=== PATIENT | female | born 1970 | race Caucasian/White ===

== ENCOUNTER 2021-07-18 14:36 | Outpatient (REF) | payer OTHER, SELFPAY ==
--- NOTE | ~2021-07-18 | XR_ITS ---
EXAMINATION: XR CHEST CLINICAL INFORMATION: Chronic cough COMPARISON: None TECHNIQUE: 2 views of the chest were obtained. FINDINGS: The cardiac and mediastinal contours are normal. The lungs are well inflated. The lungs are clear. There is no pleural effusion or thorax. Bony structures are unremarkable. XR/XR chest 2V IMPRESSION: Well-inflated lungs. No evidence for acute disease in the chest.
== END 2021-07-18 14:37 | disposition home or self-care (01) ==
LOC: HO.XRAY 14:36
PROVIDERS: PCP Nurse Practitioner Family; Visit Provider Otolaryngology
DX: R05.9 Cough, unspecified (principal)
CPT/HCPCS: 71046

== ENCOUNTER 2021-07-25 15:07 | Outpatient (REF) | payer OTHER, SELFPAY ==
--- NOTE | ~2021-07-25 | XR_ITS ---
EXAMINATION: XR SINUSES CLINICAL INFORMATION: Sinusitis COMPARISON: None TECHNIQUE: 4 views of the sinuses were obtained. FINDINGS: Paranasal sinuses appear clear without air-fluid levels. No fractures are identified. No radiodense foreign bodies. XR/XR sinus <3V IMPRESSION: The paranasal sinuses appear clear.
== END 2021-07-25 15:08 | disposition home or self-care (01) ==
LOC: HO.XRAY 15:07
PROVIDERS: Visit Provider Otolaryngology
DX: J32.9 Chronic sinusitis, unspecified (principal)
CPT/HCPCS: 70210

== ENCOUNTER 2021-12-29 03:35 | Emergency (ER) | payer OTHER, SELFPAY ==
[2021-12-29 03:53] VITALS: BP 164/87; PULSE 75; RESP 18; TEMP 37; O2SAT 100; BMI 25.7
[2021-12-29 04:12] VITALS: BP 157/85; PULSE 71; RESP 20; TEMP 37.1; O2SAT 100
[2021-12-29] MEDS: Fluorescein Sodium STRIP 1 STRIP EYE-LEFT (04:40)
[2021-12-29] MEDS: Tetracaine HCl/PF 0.5% Oph Sol 4 ML DROPS 1 DROP EYE-LEFT (04:40)
--- NOTE | 2021-12-29 04:40 | PC.NURSE ---
Meds and Oakley Lamp left at bed side for .
--- NOTE | 2021-12-29 05:49 | ED_ITS ---
HPI - General Adult General Chief complaint: General Medical Stated complaint: scratched cornea? L eye pain Time Seen by Provider: 12/29/21 03:47 Source: patient Mode of arrival: ambulatory History of Present Illness HPI narrative: 51-year-old female who comes in after playing softball last night stating that she woke up and had pain in the left eye not on movement and denies any photosensitivity and states that her left eye has been watering since 0130. Patient states it feels like there is something in her eye but denies any burning/ tingling sensation to the side of face no symptoms within the year, nose, side of the face. Related Data Previous Rx's Medication Instructions Recorded erythromycin 5 mg/gram (0.5 %) eye 0.5 inch OPHTHALMIC (EYE) TID 5 12/29/21 ointment Days #3.5 g Allergies Allergy/AdvReac Type Severity Reaction Status Date / Time Sulfa (Sulfonamide AdvReac Hives Unverified 12/29/21 04:01 Antibiotics) Review of Systems Review of Systems: Pertinent positives and negatives as stated in HPI 10 point review of systems is otherwise negative. PMFSH Past Medical History Source: nursing notes reviewed Social History Social History Advance Directives: No Advance Directives Information Provided: Yes Physical Exam ED Vital Signs: Vital Signs - 24 hr 12/29/21 03:53 12/29/21 04:12 Temperature 98.6 F 98.8 F Pulse Rate 75 71 Respiratory Rate 18 20 Blood Pressure 164/87 H 157/85 H Pulse Oximetry 100 100 BMI result Body Mass Index 25.7 VITAL SIGNS: Reviewed. GENERAL: Well developed, well nourished, in no acute distress. HEAD: Normocephalic/atraumatic EYES: PERRLA, EOMI , no conjunctival injection noted, no fixed pupil noted, fluorscein utilize but no obvious abrasion or foreign body identified. Patient's eye was vigorously irrigated with saline, however gradually the discomfort that patient was experiencing returned. EARS: Ext canals without abnormality, TMs non-bulging and non-erythematous NOSE: Nares patent bilateral OROPHARYNX: no oral lesions noted, posterior pharynx clear LUNGS: Normal breath sounds. CARDIOVASCULAR: Regular rate and rhythm without noted murmurs ABDOMEN: Soft, non-tender, non-distended with bowel sounds. NEUROLOGIC: Alert and oriented x 4. Course Course Course Narrative: 51-year-old female with history and clinical presentation suggestive of possible foreign body or corneal abrasion, but unable to identify. There is no evidence to suggest acute angle glaucoma, there is no history or presentation to support retinal pathology, but unable to obtain IOP due to missing equipment. Patient was informed of all results and findings as well as the plan to go ahead and get her started on antibiotic ointment and she understands that she will need to follow-up with her knitting machine fixer today. She is otherwise discharged home in stable condition and was provided with an additional eye drop of topical anesthetic. Discharge Plan Discharge Clinical Impression: Left eye pain Patient Disposition: Home, Self-Care Instructions: Eye Pain (ED) Additional Instructions: 1. Please utilize the antibiotic ointment as directed. 2. Follow-up with your knitting machine fixer today for re-evaluation and further investigation. Return to the ER for worsening symptoms. Prescriptions: New erythromycin 5 mg/gram (0.5 %) ointment 0.5 inch ophthalmic (eye) TID 5 Days Qty: 3.5 0RF Referrals: Sharlene Horta, TOMMY, NUMERICAL CONTROL PROGRAMMER, FIELD EVIDENCE TECHNICIAN-C [Primary Care Provider] -
[2021-12-29] MEDS: Erythromycin Base 0.5% Oph Oin 1 GM TUBE 1 CM EYE-LEFT (05:52)
== END 2021-12-29 06:33 | disposition home or self-care (01) ==
PROVIDERS: Emergency Provider Student in an Organized Health Care Education/Training Program; PCP Registered Nurse
DX: H57.12 Ocular pain, left eye (principal)
CPT/HCPCS: 99281; 99283

== ENCOUNTER 2024-05-05 10:01 | Emergency (ER) | payer OTHER, SELFPAY ==
--- NOTE | ~2024-05-05 | CT_ITS ---
EXAMINATION: CT ABDOMEN AND PELVIS WITHOUT CONTRAST CLINICAL INFORMATION: Left-sided flank pain COMPARISON: None available. TECHNIQUE: Multidetector volumetric imaging was performed from the superior aspect of the liver through the pubic symphysis. Sagittal and coronal reformatted images were obtained on the technologist's workstation. This CT examination was performed using dose optimization techniques as appropriate, variously including the following: *Automated exposure control *Adjustment of mA and/or kV according to patient size (this includes techniques or standardized protocols for targeted exams where dose is matched to indication/reason for exam; i.e. extremities or head) *Use of iterative reconstruction technique DLP: 393 mGy-cm FINDINGS: LUNG BASES: The visualized lung bases are unremarkable. LIVER, GALLBLADDER, AND BILIARY TREE: The liver is normal in size, shape, and attenuation. No focal hepatic lesion or biliary ductal dilatation is present. The gallbladder is unremarkable with no evidence of radiopaque gallstones, gallbladder wall thickening, or obvious pericholecystic inflammatory changes. PANCREAS: Unremarkable. SPLEEN: Unremarkable. ADRENAL GLANDS: Unremarkable. KIDNEYS AND URETERS: The kidneys are normal in size, shape, and attenuation. There is mild left-sided hydronephrosis with a prominent ureter down to the level of a tiny punctate 1.2 mm calculus at the left UVJ. 4 tiny punctate calcifications are seen in the lower pole of left kidney with 2 tiny punctate calcification in the left, one in the upper pole and the other in the lower pole. No right sided hydronephrosis, hydroureter, or ureteral calculi seen. No perinephric stranding. BLADDER: Empty but unremarkable aside from the stone at the left UVJ GASTROINTESTINAL TRACT: The small and large bowel are unremarkable. There is no evidence of appendicitis. ABDOMINAL WALL: No significant hernia is appreciated. LYMPH NODES: Normal. VASCULAR: Unremarkable. PELVIC VISCERA: The uterus and adnexa are unremarkable. OSSEOUS STRUCTURES: Unremarkable. CT/CT abdomen pelvis wo IV con IMPRESSION: 1. Obstructing 1.2 mm calculus at the left UVJ with associated hydronephrosis. 2. Other incidental findings as described above including bilateral punctate nonobstructing intrarenal calculi Fleischner guidelines were followed. Electronically signed by: Jamie Avila MD 05/05/2024 12:02 PM EDT
[2024-05-05 10:04] VITALS: BP 144/82; PULSE 89; RESP 20; TEMP 37; O2SAT 100; BMI 26.6
[2024-05-05 10:45] LABS: MANUAL DIFF FLAG NO
[2024-05-05 10:46] LABS: Basophils Percent Auto 0.4 % (0-2); Eosinophils Percent Auto 0.2 % (0-4); Hematocrit 40.6 % (37.0-47.0); Hemoglobin 14.4 g/dl (12.0-16.0); Imm Gran Abs Auto 0.02 X10*3/uL (0.00-0.03); Imm Gran Pct Auto 0.2 % (0.0-0.4); Lymphocytes Absolute Auto 2.8 X10*3/uL (1.2-4.9); Lymphocytes Percent Auto 33.5 % (20-40); Mean Corpuscular HGB Conc 35.5 g/dl (31.0-35.0); Mean Corpuscular Hemoglobin 32.3 pg (27.0-33.0); Mean Platelet Volume 8.4 fL (9.4-12.3); Monocytes Absolute Auto 0.4 X10*3/uL (0.1-1.2); Monocytes Percent Auto 4.6 % (2-11); Neutrophils Percent Auto 61.1 % (45-73); Platelet Count 182 X10*3/uL (160-400); Red Blood Count 4.46 X10*6/uL (4.20-5.50); White Blood Count 8.2 X10*3/uL (4.8-10.8)
[2024-05-05 10:47] LABS: Appearance Urine Cloudy; Color Urine Yellow; Glucose Urine UA Negative (Negative); Leukocyte Esterase Urine Small (1+) (Negative); Nitrite Urine Negative (Negative); Specific Gravity - Urine 1.025 (1.005-1.025); UMIC TRIGGER UACC YES; Urine Blood Moderate (2+) (Negative); Urine Ketones Trace mg/dL (Negative); Urine Protein Negative (Neg-Trace)
[2024-05-05 10:52] LABS: Bacteria Urine 1+ (None Seen); Hyaline Casts Urine 0-2 /LPF (0-2); UACC Culture Trigger YES
--- NOTE | 2024-05-05 10:59 | ED_ITS ---
HPI - Abdominal Pain General Chief Complaint: Abdominal Pain Stated Complaint: Kidney Stone Time Seen by Provider: 05/05/24 10:54 Source: patient Mode of arrival: ambulatory Limitations: no limitations History of Present Illness HPI narrative: 53 years old patient presented to emergency department with a chief complaint of left flank pain radiated to her genitalia. Pain started this morning denies any vomiting any diarrhea she has no prior history of kidney stones. She had postmenopausal bleeding for which she has been workup by the OBGYN with a uterine biopsy MD elicited complaint: flank pain Pertinent past history: none Onset (ago): hour(s) (8) Pain Consistency: constant Location: other (Left flank) Severity: moderate Quality: aching Radiation: L flank Migration to: no migration Exacerbating factors: nothing Relieving factors: nothing Related Data Previous Rx's ?Medication ?Instructions ?Recorded erythromycin 5 mg/gram (0.5 %) eye 0.5 inch ophthalmic (eye) TID 5 12/29/21 ointment days #3.5 grams ketorolac 10 mg tablet 10 mg PO Q8H PRN pain 3 days #12 05/05/24 tabs tamsulosin 0.4 mg capsule (Flomax) 0.4 mg PO BEDTIME #7 caps 05/05/24 Allergies Allergy/AdvReac Type Severity Reaction Status Date / Time Sulfa (Sulfonamide AdvReac Hives Unverified 05/05/24 10:08 Antibiotics) Review of Systems Reports system reviewed and no additional complaints, except as documented Cardiovascular: Reports no additional cardiovascular complaints Reports system reviewed and no additional complaints, except as documented [facility] [place] Social History Social History Advance Directives: No Advance Directives Information Provided: No Do you have a plan to hurt others: No Plan Physical Exam ED Vital Signs: Vital Signs - 24 hr 05/05/24 10:04 05/05/24 12:00 Temperature 98.6 F Pulse Rate 89 65 Respiratory Rate 20 16 Blood Pressure 144/82 H 140/59 H Pulse Oximetry 100 98 Oxygen Delivery Method Room Air Room Air BMI result Body Mass Index 26.6 Const General: cooperative and comfortable Nutritional Appearance: average body habitus Orientation/consciousness: patient oriented x3 HENMT Head: Yes normal to inspection Ears: hearing grossly normal bilaterally Face and sinus: Yes normal facial exam Mouth: Normal oral and palatal mucosa present Neck Neck: Yes normal visual inspection and Yes full ROM Thyroid: Thyroid normal Carotids: normal carotid upstroke Chest Chest palpation & inspection: normal inspection of the chest Resp Effort & Inspection: normal respiratory effort Auscultation: clear to auscultation bilaterally Cardio Jugular venous distension: no JVD Rate: regular rate Rhythm: regular rhythm GI Other: Tenderness in the left flank Inspection: Yes normal to inspection Palpation (GI): Soft to palpation Skin General skin exam: no rashes or lesions noted Neuro General: patient oriented x3 Course Reevaluation(s) Reevaluation #1: On re-examination the patient is doing much better she is pain-free clinical picture consistent with left renal colic confirmed by CT at this point we could discharge the patient home Time: 12:52 Medical Decision Making Medical Decision Making [facility] Narrative: Patient presented to the ED with a left flank pain will check CT labs UA Differential Diagnosis Differential Diagnoses: The differential diagnosis associated with the presentation includes Kidney stone/pyelonephritis/renal colic Admission/Observation Consideration of admission/observation: Escalation of care including admission/observation considered Lab Data MDM Lab Attestation statement: I reviewed the patient's lab results. 05/05/24 10:41 05/05/24 10:41 Labs: Lab Results 05/05/24 05/05/24 Range/Units 10:38 10:41 WBC 8.2 (4.8-10.8) X10*3/uL RBC 4.46 (4.20-5.50) X10*6/uL Hgb 14.4 (12.0-16.0) g/dl Hct 40.6 (37.0-47.0) % MCV 91.0 (80.0-98.0) fL MCH 32.3 (27.0-33.0) pg MCHC 35.5 H (31.0-35.0) g/dl RDW 12.0 (11.0-16.0) % Plt Count 182 (160-400) X10*3/uL MPV 8.4 L (9.4-12.3) fL Immature Gran % (Auto) 0.2 (0.0-0.4) % Neut % (Auto) 61.1 (45-73) % Lymph % (Auto) 33.5 (20-40) % [place] % (Auto) 4.6 (2-11) % Eos % (Auto) 0.2 (0-4) % Baso % (Auto) 0.4 (0-2) % Lymph # (Auto) 2.8 (1.2-4.9) X10*3/uL [place] # (Auto) 0.4 (0.1-1.2) X10*3/uL Eos # (Auto) 0.0 (0.0-0.4) X10*3/uL Baso # (Auto) 0.0 (0.0-0.2) X10*3/uL Abs Immat Gran (auto) 0.02 (0.00-0.03) X10*3/uL Absolute Neuts (auto) 5.0 (2.0-8.3) x10*3/uL Absolute Nucleated RBC 0.000 (0.0-0.012) X10*3/uL Nucleated RBC % (auto) 0.0 (0.0-0.2) /100WBC Sodium 140 (135-145) mmol/L Potassium 3.9 (3.3-5.1) mmol/L Chloride 108 (96-108) mmol/L Carbon Dioxide 26 (22-29) mmol/L Anion Gap 10 L (12-20) BUN 15 (9-16) mg/dL Creatinine 0.88 (0.5-1.4) mg/dL Estim Creat Clear Calc 77.3 Estimated GFR > 60 Random Glucose 106 (60-115) mg/dL Calcium 9.5 (8.4-10.2) mg/dL Total Bilirubin 0.7 (0.0-1.0) mg/dL AST 11 (5-31) U/L ALT 15 (0-31) U/L Alkaline Phosphatase 52 (39-117) U/L Total Protein 6.4 L (6.5-8.0) g/dL Albumin 4.1 (3.5-5.0) g/dL Urine Color Yellow Urine Appearance Cloudy Urine pH 6.0 (5.0-9.0) Ur Specific K[place] 1.025 (1.005-1.025) Urine Protein Negative (Neg-Trace) mg/dL Urine Glucose (UA) Negative (Negative) mg/dL Urine Ketones Trace (Negative) mg/dL Urine Blood Moderate (2+) H (Negative) Urine Nitrite Negative (Negative) Ur Leukocyte Esterase Small (1+) H (Negative) Urine RBC 11-20 H (0-2) /HPF Urine WBC 11-20 H (0-5) /HPF Ur Squamous Epith Cells 11-20 (0-2) /HPF Urine Bacteria 1+ (None Seen) Hyaline Casts 0-2 (0-2) /LPF Independent Interpretation I performed an independent interpretation of an: CT Scan Interpretation: left uretheral stone Radiology Impression Discussion of test interpretation with radiology: I have reviewed the radiologist's reading. Radiologist Impression: bowel are unremarkable. There is no evidence of appendicitis. ABDOMINAL WALL: No significant hernia is appreciated. LYMPH NODES: Normal. VASCULAR: Unremarkable. PELVIC VISCERA: The uterus and adnexa are unremarkable. OSSEOUS STRUCTURES: Unremarkable. CT/CT abdomen pelvis wo IV con IMPRESSION: 1. Obstructing 1.2 mm calculus at the left UVJ with associated hydronephrosis. 2. Other incidental findings as described above including bilateral punctate nonobstructing intrarenal calculi Fleischner guidelines were followed. Electronically signed by: Jamie Avila MD 05/05/2024 12:02 PM EDT RP Dictated By: Jamie Avila MD Signed By: <Electronically signed by Jamie Avila MD in OV> 05/05/24 1202 Independent Historian Clinical information obtained from an independent historian. History obtained from or confirmed by: Other (significative other) Prescription Management I considered prescription management with: Pain Medication Medications Administered Discontinued Medications Generic Name Dose Route Start Last Admin Trade Name Freq PRN Reason Stop Dose Admin Ketorolac Tromethamine 15 mg 05/05/24 10:58 05/05/24 11:28 Ketorolac Tromethamine 15 Mg/Ml Vial IVPUSH 05/05/24 10:59 15 mg ONCE ONE Administration Discharge Plan Discharge Clinical Impression: Renal colic on left side Patient Disposition: Home, Self-Care Instructions: Renal Colic (ED) Additional Instructions: Follow-up with urologist return to the emergency room if you worse vomiting or fever Prescriptions: New tamsulosin [Flomax] 0.4 mg capsule 0.4 mg PO BEDTIME Qty: 7 0RF ketorolac 10 mg tablet 10 mg PO Q8H PRN (Reason: pain) 3 Days Qty: 12 0RF No Action erythromycin 5 mg/gram (0.5 %) ointment 0.5 inch ophthalmic (eye) TID 5 Days Qty: 3.5 0RF Referrals: John Olivera MD [Physician] - 3 days Print Language: Bahraini
[2024-05-05 11:01] LABS: Alanine Aminotransferase 15 U/L (0-31); Albumin Level 4.1 g/dL (3.5-5.0); Alkaline Phosphatase 52 U/L (39-117); Anion Gap 10 (12-20); Aspartate Amino Transferase 11 U/L (5-31); Bilirubin Total 0.7 mg/dL (0.0-1.0); Blood Urea Nitrogen 15 mg/dL (9-16); Calcium 9.5 mg/dL (8.4-10.2); Carbon Dioxide 26 mmol/L (22-29); Chloride 108 mmol/L (96-108); Creatinine Clr Calc Pharmacy 77.3; Estimated Glomerular Filt Rate > 60; Glucose Random 106 mg/dL (60-115); Potassium 3.9 mmol/L (3.3-5.1); Sodium 140 mmol/L (135-145); Total Protein 6.4 g/dL (6.5-8.0)
[2024-05-05] MEDS: Ketorolac Tromethamine 15 MG/ML VIAL IVPUSH (11:28)
[2024-05-05 12:00] VITALS: BP 140/59; PULSE 65; RESP 16; O2SAT 98
[2024-05-05 13:10] VITALS: BP 140/59; PULSE 65; RESP 18; TEMP 36.8; O2SAT 98
== END 2024-05-05 13:11 | disposition home or self-care (01) ==
PROVIDERS: Emergency Provider Emergency Medicine; PCP Registered Nurse
DX: N23 Unspecified renal colic (principal); Z79.899 Other long term (current) drug therapy
CPT/HCPCS: 36415; 74176; 80053; 81001; 85025; 87086; 96374; 99284; J1885

== ENCOUNTER 2024-06-24 13:56 | Outpatient (AMB) | payer OTHER, SELFPAY ==
--- NOTE | 2024-06-24 14:00 | MHC.OFFVIS ---
Intake Visit Reasons: [facility] [place] ER(05/05)- Kidney Stones/hydronephrosis Intake Note: New Patient is present for [facility] [place] ER Follow up Kidney stones [facility] [place] ER Visit: 05/05/24 Urology Med: Tamsulosin (Prescribed at ER) Antibiotic Allergy: Sulfa Antibiotics Blood Thinner: None Patient reports that she is feeling a lot better since ER visit She reports that she does have some urinary concerns, she reports that she gets up 2-4 times during the night and does experience frequency during the day. She reports she was on medication when she was younger in her 20's while working in a [employer] to help with frequency. 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 She is a patient of . She is seen for the following urologic conditions - nephrolithiasis - bladder instability Discussed imaging findings Need 64 oz of water Has issues with bladder urgency and frequency Printed information provided Trial low-dose daily Cialis Nephrolithiasis Reason presentation to emergency room with distal right ureteric pain Imaging - CT - There is mild left-sided hydronephrosis with a prominent ureter down to the level of a tiny punctate 1.2 mm calculus at the left UVJ. 4 tiny punctate calcifications are seen in the lower pole of left kidney with 2 tiny punctate calcification in the left, one in the upper pole and the other in the lower pole Bladder instability Waking 3 times at night Urinating 8 times a day Only drinks 32 oz Previously investigated with urodynamics and diagnosed as interstitial cystitis in her 20s but never underwent treatment [facility] Medical History (Updated 06/24/24 @ 14:34 by John Olivera MD) Nocturia Sinusitis, chronic History of kidney stones Fibroid uterus Surgical History History of arthroscopy of left shoulder H/O elbow surgery Family History Maternal Aunt Breast cancer Father CAD (coronary atherosclerotic disease) Review of Systems Const Denies chills and Denies fever(s) Card Reports no additional complaints and Denies syncope Resp Denies cough GI Denies abdominal pain and Denies heartburn Reports as per HPI and Denies change in libido Neuro Denies syncope Psych Denies change in libido Endo Denies change in libido Physical Exam Const General: cooperative, healthy appearing, comfortable and no acute distress Orientation/consciousness: patient oriented x3 HEENT Face and sinus: Yes normal facial exam Mouth: moist mucous membranes Neck Neck: Yes normal visual inspection, Yes full ROM and Yes trachea midline Chest Chest palpation & inspection: normal inspection of the chest Resp Effort & Inspection: normal respiratory effort, able to speak in complete sentences and no respiratory distress GI Inspection: Yes normal to inspection Back/Spine/Pelvis Cervical Spine: normal cervical lordosis Thoracic/Lumbar Spine: thoracic and lumbar spine normal to inspection Skin General skin exam: no rashes or lesions noted Neuro General: patient oriented x3, gait normal, tone normal and moves all extremities Extrem General: Yes normal to inspection and Yes capillary refill normal Office Procedures Post Void Residual Post Residual Void Post Void Residual (PVR): 0 [id number] Void Residual by ultrasound Assessment & Plan Assessment & Plan (1) Bladder instability: Code(s): N32.89 - Other specified disorders of bladder Category: Medical (2) Nephrolithiasis: Code(s): N20.0 - Calculus of kidney Category: Medical Plan Three-month follow-up renal ultrasound Trial Cialis Orders: Orders AMB Post Void Residual by ultrasound Today R35.0 - Frequency of micturition US renal BI 3 Months N20.0 - Calculus of kidney Medications: New tadalafil MARK N [facility] [id number] 2.5 mg PO DAILY 90 days 90 tabs 0RF Bladder instability N32.89 - Other specified disorders of bladder Patient Instructions: Imaging studies, laboratory and physical exam results were discussed and reviewed in detail. No major barriers to patient understanding were identified. An opportunity to ask questions regarding the treatment plan was provided. All questions were answered. The patient expressed understanding and agreement with the above treatment plan. The patient is aware they should contact our office by phone for worsening of their current condition or the appearance of new urologic symptoms. Compliance is encouraged with any medications and followup testing that is ordered. It is a privilege to participate in the urologic care of your patient. If you have any questions or concerns regarding treatment for the above conditions, or other urologic issues, please do not hesitate to contact me. The office telephone contact is [phone]. This note is constructed using voice recognition software. While every effort has been made to ensure accuracy medical receptionist assistant errors may have been included. Yours sincerely, Dr John Olivera MD, [facility] - Urology Providers of Expert, Compassionate Care for the Genitourinary System Coding Level of Care Code New Pt Level 4 (18448) Diagnoses Bladder instability N32.89 Nephrolithiasis N20.0 CPT Codes Post Residual Void - PVR CPT Code: 78893-[id number] Void Residual by ultrasound ([id number])
== END 2024-06-24 14:45 | disposition home or self-care (01) ==
LOC: HO.HUSH 13:56
PROVIDERS: PCP Registered Nurse; Visit Provider Urology
DX: N32.89 Other specified disorders of bladder (principal); N20.0 Calculus of kidney
CPT/HCPCS: 99204

== ENCOUNTER → 2024-06-24 13:56 | Outpatient (BNVA) | payer OTHER, SELFPAY | PROVIDERS: PCP Registered Nurse; Visit Provider Urology | DX: N32.89 Other specified disorders of bladder (principal); N20.0 Calculus of kidney; R35.0 Frequency of micturition | CPT/HCPCS: 51798 ==

== ENCOUNTER 2024-12-05 13:55 | Outpatient (AMB) | payer OTHER, SELFPAY ==
--- NOTE | 2024-12-05 13:55 | MHC.OFFVIS ---
Intake Visit Reasons: medication review Intake Note: Pt presents as a telehealth visit today for a medication review. Allergies Penicillins Allergy (Mild, Verified 12/05/24 13:56) Unknown Sulfa (Sulfonamide Antibiotics) Adverse Reaction (Verified 12/05/24 13:56) Hives HPI Comments Details: Sonal is a pleasant female. She is a patient of . She is seen for the following urologic conditions - nephrolithiasis - bladder instability Telemedicine Evaluation 15 min Consultation Open[employer] Marcel Video Discussed follow-up from trial of low-dose Cialis Was beneficial for initial timeframe Has had return of urinary urgency and frequency Discussed trial of anticholinergic Would prefer to bump up from 2.5 to 5 mg daily tadalafil Nephrolithiasis Reason presentation to emergency room with distal right ureteric pain Imaging - CT - There is mild left-sided hydronephrosis with a prominent ureter down to the level of a tiny punctate 1.2 mm calculus at the left UVJ. 4 tiny punctate calcifications are seen in the lower pole of left kidney with 2 tiny punctate calcification in the left, one in the upper pole and the other in the lower pole Bladder instability Waking 3 times at night Urinating 8 times a day Only drinks 32 oz Previously investigated with urodynamics and diagnosed as interstitial cystitis in her 20s but never underwent treatment PFSH Medical History Nocturia Sinusitis, chronic History of kidney stones Fibroid uterus Surgical History History of arthroscopy of left shoulder H/O elbow surgery Family History Maternal Aunt Breast cancer Father CAD (coronary atherosclerotic disease) Review of Systems Const All systems reviewed & are unremarkable except as noted in HPI and below Reports no additional complaints Resp Reports no additional complaints GI Reports no additional complaints Reports as per HPI Musc Reports no additional complaints Physical Exam Telemedicine evaluation Appropriate responses Regular breathing rate and rhythm HEENT Head: Yes normal to inspection Ears: hearing grossly normal bilaterally Eyes General: appearance normal, both eyes and all related structures Neck Neck: Yes normal visual inspection Chest Chest palpation & inspection: normal inspection of the chest Resp Effort & Inspection: normal respiratory effort and able to speak in complete sentences Telehealth Telehealth Telehealth Platform: Doximity Location of provider rendering services: practice address Location of patient: address on file Patient Identification confirmed using: Name, : Yes Telehealth method: video Patient verbally consented to treatment: Yes Patient verbally consented to billing insurance company: Yes Patient informed of any privacy concerns related to visit: Yes Assessment & Plan Assessment & Plan (1) Nephrolithiasis: Code(s): N20.0 - Calculus of kidney Category: Medical (2) Bladder instability: Code(s): N32.89 - Other specified disorders of bladder Category: Medical Plan Increased dose tadalafil Medications: New tadalafil [id number] [facility] [id number] Member [id number] 5 mg PO DAILY 30 tabs 1RF 30 days N32.89 - Other specified disorders of bladder Discontinued tadalafil [facility] Group [facility] [id number] Discontinued Reason: Patient Completed Course 2.5 mg PO DAILY 90 days 90 tabs 3RF Bladder instability N32.89 - Other specified disorders of bladder Patient Instructions: This note is constructed using voice recognition software. While every effort has been made to ensure accuracy frame pulley mortising machine operator errors may have been included. Imaging studies, laboratory and physical exam results were discussed and reviewed in detail. No major barriers to patient understanding were identified. An opportunity to ask questions regarding the treatment plan was provided. All questions were answered. The patient expressed understanding and agreement with the above treatment plan. The patient is aware they should contact our office by phone for worsening of their current condition or the appearance of new urologic symptoms. Compliance is encouraged with any medications and followup testing that is ordered. It is a privilege to participate in the urologic care of your patient. If you have any questions or concerns regarding treatment for the above conditions, or other urologic issues, please do not hesitate to contact me. The office telephone contact is [phone]. Sincerely, Dr John Olivera MD, [facility] - Urology Compassionate Specialist Care for the Genitourinary System Coding Level of Care Code Tele Est Pt Level 3 (92911) Complex EM visit Add On G2211 Diagnoses Nephrolithiasis N20.0 Bladder instability N32.89
--- OUTSIDE RECORDS SUMMARY | 2024-12-05 14:18 | XMS_ITS ---
Author Organization [facility] Address [address] [place] [id number] Care Team Providers Care Field Superintendent Name Role Phone KAMERON NAVARRETE Unavailable [phone] REASON FOR VISIT Question Social History Sex Assigned At : Social History Observation Description Sex Assigned At Female Encounters Encounter Location Date Provider Diagnosis [facility] [address] [place] [address] [place], [place] [phone] 05/14/2024 KAMERONSA NAVARRETE Plan Of Treatment No Information Progress Notes * Sonal BRAVODOB: [birth year] (53 yo F)Acc No.[id number]:05/14/2024 Patient:?Sonal BRAVO :1970???Age:53 Y???Sex:Female Address:[address] [place] [address], [address] * true * Date:? Generated for Printi judy/[email or web address]/eTransmitting on:?12/05/2024 02:18 PM EDT
--- OUTSIDE RECORDS SUMMARY | 2024-12-05 14:18 | XMS_ITS | Clinical Summary ---
Author Organization [facility] Address [address] [place] [id number] Care Team Providers Care Periodicals Clerk Name Role Phone Alexei Velazquez MD Primary Care Provider [phone] Allergies Active Allergy Reactions Criticality Noted Date Comments Penicillins Hives Low 07/23/2014 rash Sulfa Antibiotics 08/08/2005 Medications Medication Sig Dispensed Refills Start Date End Date Status acetaminophen (TYLENOL EXTRA STRENGTH) 500 MG tablet Take 500 mg by mouth. 0 Active Diclofenac Sodium 1 % GEL topical Place 2 g onto the skin. 0 10/16/2018 Active gabapentin (NEURONTIN) 300 MG capsule TAKE 3 CAPSULES BY MOUTH ONCE DAILY AT BEDTIME 0 09/14/2017 Active ibuprofen (ADVIL,MOTRIN) 800 MG tablet TAKE 1 TABLET BY MOUTH EVERY 8 HOURS NEEDED FOR PAIN 0 05/13/2019 Active MAGNESIUM PO Take by mouth. 0 Active Active Problems Problem Noted Date Diagnosed Date Subacromial bursitis of left shoulder joint 12/2019 Impingement syndrome of left shoulder region 12/2019 Social History Tobacco Use Types Packs/Day Years Used Date Smoking Tobacco: Never Assessed Sex and Gender Information Value Date Recorded Sex Assigned at Not on file Gender Identity Not on file Sexual Orientation Not on file Last Filed Vital Signs Vital Sign Reading Time Taken Comments Blood Pressure - - Pulse - - Temperature - - Respiratory Rate - - Oxygen Saturation - - Inhaled Oxygen Concentration - - Weight 65.8 kg (145 lb) 10/23/2019 9:50 AM EST Height 162.6 cm (5' 4 ) 10/23/2019 9:50 AM EST Body Mass Index 24.89 10/23/2019 9:50 AM EST Plan of Treatment Health Maintenance Due Date Last Done Comments Hepatitis B Vaccines (1 of 3 - 3-dose series) 1971 Hepatitis C Screening 1970 COVID-19 Vaccine (#1) 01/01/1972 Depression Screening 1983 Preventative Health Evaluation 1989 Cervical Cancer Screening (Pap Smear) 1992 Colon Cancer Screening (Colonoscopy) 2016 Breast Cancer Screening (Mammogram) 2021 Shingrix-Zoster Vaccine (1 o f 2) 2021 Influenza Vaccine (#1) 2024 DTap / Tdap / Td (3 - Td or Tdap) 04/22/2027 04/22/2017, 12/11/2006 Pneumococcal Vaccine Aged Out No long er eligible based on patient's age to complete this topic RSV Ped < 20 months Aged Out No longe r eligible based on patient's age to complete this topic Insurance Payer Benefit Plan / Group Subscriber ID Effective Dates Phone Address [facility] [id number] 2019-Presen t 1 [facility] [address] [place] [phone] O Care Teams Periodicals Clerk Relationship Specialty Start Date End Date Alexei Velazquez MD PCP - General Paper Mill Manager 10/16/19
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
--- OUTSIDE RECORDS SUMMARY | 2024-12-05 14:18 | XMS_ITS ---
Author Organization [facility] Address [address] [place] [phone] Care Team Providers Care Concrete Mixer Operator Helper Name Role Phone FARZANEHIsaiah JENNA Unavailable [phone] Allergies Allergen (clinical drug ingredient) Drug/Non Drug Allergy documented on EMR Reaction Allergy Type Onset Date Status Penicillin Unknown Drug Allergy Active Substance with sulfonamide structure and antibacterial mechanism of action (substance) Sulfa Antibiotics Unknown Drug Allergy Active REASON FOR VISIT Counseling Medications Medication SIG (Take, Route, Frequency, Duration) Notes Start Date End Date Status LORazepam at night for sleep Not-Taking Meloxicam 15 MG 1 tablet Orally Once a day for 30 day(s) Active Estradiol patch Active Progesterone Micronized at night 100mg Active Iron Not-Taking Social History Sex Assigned At : Social History Observation Description Sex Assigned At Female Vital Signs Blood pressure systolic 122 mm Hg 11/04/19 25 Blood pressure diastolic 82 mm Hg 025 Height 5'4 in 11/03/2024 Weight 138.6 lbs 11/03/2024 BMI 23.79 kg/m2 11/03/2024 Encounters Encounter Location Date Provider Diagnosis [address] [place], [place] [phone] 11/03/2024 JENNA GABAI Counseling, unspecified Z71.9 Assessments Encounter Date Diagnosis (ICD Code) Assessment Notes Treatment Notes Treatment Clinical Notes Section Notes 11/03/2024 Counseling, unspecified (ICD-10 - Z71.9) Reviewed notes from outside provider. Clt has appt tomorrow with BUTTERMILK DRIER OPERATOR again to review plan of care and discuss concerns regarding recommendation to repeat D&C. Encouraged clt to advocate for plan to manage vasomotor symptoms with non-hormonal medication if they still advise discontinuation of HRT patch. Encouraged clt not to cut patch in half or quarters d/t potential for inaccurate dosing. Consider hormonal IUD at time of D&Explosive Ordnance Disposal Specialist she could consider staying on estrogen patch for relief of hot flashes and have endometrial protection. Hysterectomy is also still an option, but clt doesn't seem interested in that at this time. Support provided. Encouraged clt to discuss concerns with BUTTERMILK DRIER OPERATOR and be up front with what she feels comfortable doing. If BUTTERMILK DRIER OPERATOR is advising repeat D&C then that [...] others Communication of test results Established Patient: 21576 30 Minutes Plan Of Treatment Treatment Notes Assessment Notes Counseling, unspecified Reviewed notes from outside provider. Clt has appt tomorrow with BUTTERMILK DRIER OPERATOR again to review plan of care and discuss concerns regarding recommendation to repeat D&C. Encouraged clt to advocate for plan to manage vasomotor symptoms with non-hormonal medication if they still advise discontinuation of HRT patch. Encouraged clt not to cut patch in half or quarters d/t potential for inaccurate dosing. Consider hormonal IUD at time of D&Explosive Ordnance Disposal Specialist she could consider staying on estrogen patch for relief of hot flashes and have endometrial protection. Hysterectomy is also still an option, but clt doesn't seem interested in that at this time. Support provided. Encouraged clt to discuss concerns with BUTTERMILK DRIER OPERATOR and be up front with what she feels comfortable doing. If BUTTERMILK DRIER OPERATOR is advising repeat D&C then that is likely most important to follow through with. Advised clt to go in with list of questions for tomorrows appt. Progress Notes * Sonal ESTESDOB: 1 (54 yo F)Acc No.[id number]:11/03/2024 Progress Notes Patient:?Sonal ESTES Provider:?Jenna Elaine NP :1970???Age:54 Y???Sex:Female D ate:11/03/2024 Address:[address] [place], [place] [id number] Subjective: * Chief Complaints: * ???Counseling * HPI: ???Visit Narrative:?Clt presenting for second opinion to discuss follow-up plan after BUTTERMILK DRIER OPERATOR visit. Had hysteroscopic polypectomy, myomectomy with D&C 06/2024. Pathology showed endometrial polyp, fragments of endometrium with crowded glands with altered cytologic features (close follow up recommended), fragments of myometrium with adenomyosis, fragments of benign smooth muscle. BUTTERMILK DRIER OPERATOR advised that she have repeat hysteroscopy with D&C 01/2025 to ensure negative pathology. Clt reports some vaginal bleeding 08/2024 and was advised at that time to discontinue her HRT. She has tried to cut down on dose by cutting her patch in half and then a quarter, but unable to tolerate return of vasomotor symptoms. Experienced post op dysuria and dyspareunia and hesitant to do it again. ?Current form of control:?none.?Presenting Symptoms:?no Sx.?LMP:?08/2024.?Other Notes for the Clinician:?Clt has concerns regarding recent surgery for fibroid and polyp removal done in June. Pathology showed no signs of cancer or abnormality but provider states he'd like to have the surgery again in 6 months to ensure normal findings but clt is hesitant and looking for second opinion. Has decreased estradiol patch to a quarter for help w/ hormonal imbalance. States she has previously tried to discontinue method and experienced hot flashes and night sweats. Denies any new partners or sexual activity.? * ROS:?see HPI. * Medical History:? * C T Tech History:?Abnormal menstruations:?06/2024- myomectomy, polypectomy with D&C pathology: fragments of endometrium with crowded glands with altered cytologic features (close follow up recommended), fragments of myometrium with adenomyosis, fragments of benign smooth muscle.Pelvic ultrasound report from outside provider, date 06/2023. Heterogenous uterus with probable fibroid 3.7 x 3.3 x 4.1 cm. Endometrium 0.3 cm. Nabothian cysts.EMB pathology: Weakly proliferative endometrium with stromal and glandular breakdown.? control:?none.?Last mammogram date:?07/2020.?Last menstrual period:?08/2024.?Last pap smear date:?PAP 11/2021- NIL/HPV negative (repeat cotest in 3 years)08/2020- NIL/HPV negative (repeat cotest in 3 years).?Menarche: ?Age of menarche?14 ???Periods:?menopause.?Sexual activity:?not currently sexually active.?Sexually Transmitted Diseases (STDs):?none.?Unprotected sex in the last 5 days?:?no.?Unprotected sex in the past 10 days?:?no.? * OB History:?Total pregnancies:?0.? * Surgical History:?left shoul chidi surgery elbow surgery polypectomy, D&C, myomectomy 06/2024 * Hospitalization/Major Diagno stic Procedure:?No Hospitalization History. * Family History:? No known family history. * Social History:?Food Access:?Food Access?The Client's current access to food is?Secure Food Access ???Housing:?Housing?The client's current living situation is:?stable housing ???Reproductive Life Plan:?Reproductive Life Plan?Do you want to have children??No, I don't want to have children ?How sure are you that you will be able to use your control method without any problems??Very sure ?People's plans change. Is it possible you or your partner could ever decide to become ??No ???Sexual History:?Sexual History?Sexual History Reviewed:?Partners, Practices, Protection/Past STIs, Prevention of ?Currently sexually active??No ?When was the last time you were sexually active??very long ago ?Your sexual activities include:?no sexual activity ?Reviewed types of EC??No ?Do you use condoms??No ?Number of partners in past 3 months:?0 ?Number of partners in past year:?0 ?What is the client's primary method to prevent at the end of their visit??Abstinence ???HIV Risk Assessment:?Additional Questions?Is an HIV Risk Assessment being conducted??No ???PrEP for HIV:?PrEP for HIV?Is the client interested in beginning/continuing PrEP for HIV??No ???Relationships:?Relationships?Has the client experienced any of the following:?Client has never experienced harmful relationships ???Human Trafficking:?Human Trafficking?Experienced:?No ???Tobacco Use:?Tobacco Use?Do you/have you used tobacco??Yes, in the past ?Tobacco Smoking Status?Former smoker ???Drugs/Alcohol:?Drug/Alcohol Use?Do you or have you used drugs??No ?Do you or have you used alcohol??Yes, in the past clean for 28 years ???Counseling Provided:?Counseling Provided?Please indicate the length of time, in minutes, that counseling was provided.?6 ?Counseling Was Provided By:?omaymora * Medications:?TakingMeloxicam 15 MG Tablet 1 tablet Orally Once a day Estradiol , Notes to Pharmacist: patchProgesterone Micronized , Notes to Pharmacist: at night 100mgTaking Meloxicam 15 MG Tablet 1 tablet Orally Once a day Taking Estradiol , Notes to Pharmacist: patchTaking Progesterone Micronized , Notes to Pharmacist: at night 100mgNot-Taking/PRNIron LORazepam , Notes to Pharmacist: at night for sleepNot-Taking/PRN Iron Not-Taking/PRN LORazepam , Notes to Pharmacist: at night for sleepDiscontinuedEstradiol 10 MCG Tablet _insert 1 TABLET VAGINALLY TWO TIMES A WEEK Medication List reviewed and reconciled with the patientDiscontinued Estradiol 10 MCG Tablet _insert 1 TABLET VAGINALLY TWO TIMES A WEEK Medication List reviewed and reconciled with the patient * Allergies:?PenicillinSulfa A ntibioticsno[Allergies Verified] Objective: * Vitals:?BP:122/82mm Hg, Ht: 5'4 , Wt:138.6lbs, BMI:23.79Index, Ht-cm: 162.56, Wt-k.87. * Examination: ???General Examination: ?GENERAL APPEARANCE:?pleasant, in no acute distress.?NEUROLOGIC:? alert and oriented.? Assessment: * Assessment: 1.?Counseling, unspecified - Z71.9 (Primary)??? Spent ___ minutes doing the following: Chart Prep Obtaining/reviewing history Performing medically necessary exam Counseling/Coordination of Care Documenting the visit Educating the patient Ordering medication/test/procedures Interpretation of test performed by others Communication of test results Established Patient: 32100 30 Minutes Plan: * Treatment: * Procedure Codes:? * Billing Information: * Visit Code:? 26549 Existing - Medium Complexity (IN USE). * Procedure Codes:? * Sign off status: Completed true * Provider:?Jenna Elaine NP Date:? 025 Generated for Gabriel kim/Gabriela/Elvia on:?12/05/2024 02:17 PM EDT History and Physical Notes * HPI (History of Present Illness) Category Sub-Category Detail Notes Category Not es Visit Narrative Current form of control: none Presenting Symptoms: no Sx Other Notes for the Clinician: Clt has c oncerns regarding recent surgery for fibroid and polyp removal done in June. Pathology showed no signs of cancer or abnormality but provider states he'd like to have the surgery again in 6 months to ensure normal findings but clt is hesitant and looking for second opinion. Has decreased estradiol patch to a quarter for help w/ hormonal imbalance. States she has previously tried to discontinue method and experienced hot flashes and night sweats. Denies any new partners or sexual activity LMP: 08/2024 Examination Category Sub-Category Detail Notes Category Not es General Examination GENERAL APPEARANCE: pleasant, in n o acute distress NEUROLOGIC: alert and oriented
--- OUTSIDE RECORDS SUMMARY | 2024-12-05 14:18 | XMS_ITS ---
Author Organization [facility] Address [address] [place] [phone] Care Team Providers Care Lcac Operator Name Role Phone KAMERON NAVARRETE Unavailable [phone] REASON FOR VISIT Follow up Social History Sex Assigned At : Social History Observation Description Sex Assigned At Female Encounters Encounter Location Date Provider Diagnosis [facility] [address] [place] [address] [place], [place] [phone] 11/04/2024 KAMERONMARK NAVARRETE Plan Of Treatment No Information Progress Notes * Sonal BRAVODOB: 1 (54 yo F)Acc No.[id number]:11/04/2024 Patient:?Sonal BRAVO :1970???Age:54 Y???Sex:Female Address:[address] [place] [address], [phone] Subjective: * Chief Complaints: * ???Follow up * Medical History:? * Liaison Inspection Laboratory Assistant History:?Abnormal menstruations:?06/2024- myomectomy, polypectomy with D&C pathology: [...] control:?none.?Last mammogram date:?07/2020.?Last menstrual period:?08/2024.?Last pap smear date:?10/2024- AGC/HPV negative (due for colpo)11/2021- NIL/HPV negative (repeat cotest in 3 years)08/2020- NIL/HPV negative (repeat cotest in 3 years).?Menarche: ?Age of menarche?14 ???Periods:?menopause.?Sexual activity:?not currently sexually active.?Sexually Transmitted Diseases (STDs):?none.?Unprotected sex in the last 5 days?:?no.?Unprotected sex in the past 10 days?:?no.? * OB History:?Total pregnancies:?0.? * Surgical History:? * Hospitalization/Major Diagno stic Procedure:? * Medications:? Objective: * Vitals:? * Physical Examination:? Assessment: Plan: * Treatment: * Procedure Codes:? * true * Date:? Generated for Gabriel kim/Gabriela/Leannsmitting on:?12/05/2024 02:18 PM EDT
== END 2024-12-05 15:31 | disposition home or self-care (01) ==
LOC: HO.HUSH 13:55
PROVIDERS: PCP Registered Nurse; Visit Provider Urology
DX: N20.0 Calculus of kidney (principal); N32.89 Other specified disorders of bladder
CPT/HCPCS: 99213

== ENCOUNTER 2025-02-24 15:58 | Outpatient (AMB) | payer OTHER, SELFPAY ==
--- OUTSIDE RECORDS SUMMARY | 2025-02-24 16:11 | XMS_ITS | Clinical Summary ---
Author Organization [facility] Address [address] [place] [id number] Care Team Providers Care Bar And Filler Assembler Name Role Phone Alexei Velazquez MD Primary Care Provider [phone] Allergies Active Allergy Reactions Criticality Noted Date [...] o f 2) 2021 Influenza Vaccine (#1) 2025 DTap / Tdap / Td (3 - Td or Tdap) 04/22/2027 04/22/2017, 12/11/2006 Pneumococcal Vaccine Aged Out No long er eligible based on patient's age to complete this topic RSV Ped < 20 months Aged Out No longe r eligible based on patient's age to complete this topic Insurance Payer Benefit Plan / Group Subscriber ID Effective Dates Phone Address [facility] [id number] 2019-Presen t [facility] [address] [place] [id number] O Care Teams Bar And Filler Assembler Relationship Specialty Start Date End Date Alexei Velazquez MD PCP - General Automation Control Technician 10/16/19
--- OUTSIDE RECORDS SUMMARY | 2025-02-24 16:11 | XMS_ITS | Patient Health Record ---
Author Organization [facility] Address [address] [place] [phone] Care Team Providers Care Laboratory Technologist Name Role Phone FARZANEHIsaiah KAMERON Unavailable [phone] Allergies Allergen (clinical drug ingredient) Drug/Non Drug [...] Status Risk Notes Problem Atrophy of vulva (798106926) Atrophy of vulva (N90.5) Active confirmed Problem Postmenopausal bleeding (72053961) Postmenopausal bleeding (N95.0) Active confirmed Vital Signs Blood pressure diastolic 82 mm Hg 11/03/2024 Height 5'4 in 11/03/2024 Blood pressure systolic 122 mm Hg 11/03/2024 Weight 138.6 lbs 11/03/2024 BMI 23.79 kg/m2 11/03/2024 Encounters Encounter Location Date Provider Diagnosis [address] [place], [place] [phone] 03/18/2024 KAMERON GABAI Postmenopausal bleed ing N95.0 and Counseling, unspecified Z71.9 [facility] [address] [place], [place] [phone] 11/03/2024 KAMERON FARZANEHI Counseling, unspecif ied Z71.9 [facility] [address] [place], [place] [phone] 03/10/2024 KAMERON GABAI [facility] [address] [place], [place] [phone] 04/19/2024 KAMERON GABAI [facility] [address] [place], [place] [phone] 05/14/2024 KAMERON GABAI [facility] [address] [place], [place] [phone] 11/04/2024 KAEMRON GABAI Assessments Encounter Date Diagnosis (ICD Code) Assessment Notes Treatment Notes Treatment Clinical Notes Section Notes 03/18/2024 Postmenopausal bleeding (ICD-10 - N95.0) Referral for WEATHER TEACHER and pelvic ultrasound written, appt to be scheduled. Long discussion on concerns related to postmenopausal bleeding and importance of follow up for possible EMB and treatment options. Clt understands plan and will wait to hear about appt with WEATHER TEACHER. Reviewed signs and symptoms that would warrant ED follow up Spent ___ minutes doing the following: Chart Prep Obtaining/review ing history Performing medically necessary exam Counseling/Coord ination of Care Documenting the visit Educating the patient Ordering medication/test/ procedures Communication with other providers Interpretation of test performed by others Communication of test results Established Patient: 82192 10 Minutes 03/18/2024 Counseling, unspecified (ICD-10 - Z71.9) Spent ___ minutes doing the following: Chart Prep Obtaining/review ing history Performing medically necessary exam Counseling/Coord ination of Care Documenting the visit Educating the patient Ordering medication/test/ procedures Communication with other providers Interpretation of test performed by others Communication of test results Established Patient: 00341 10 Minutes 11/03/2024 Counseling, unspecified (ICD-10 - Z71.9) Reviewed notes from outside provider. Clt has appt tomorrow with WEATHER TEACHER again to review plan of care and discuss concerns regarding recommendation to repeat D&C. Encouraged clt to advocate for plan to manage vasomotor symptoms with non-hormonal medication if they still advise discontinuation of HRT patch. Encouraged clt not to cut patch in half or quarters d/t potential for inaccurate dosing. Consider hormonal IUD at time of D&Director Systems she could consider staying on estrogen patch for relief of hot flashes and have endometrial protection. Hysterectomy is also still an option, but clt doesn't seem interested in that at this time. Support provided. Encouraged clt to discuss concerns with WEATHER TEACHER and be up front with what she feels comfortable doing. If WEATHER TEACHER is advising repeat D&C then that is [...] others Communication of test results Established Patient: 20733 30 Minutes 03/18/2024 Other Discussed STI risks, screening, and safe sex Spent ___ minutes doing the following: Chart Prep Obtaining/review ing history Performing medically necessary exam Counseling/Coord ination of Care Documenting the visit Educating the patient Ordering medication/test/ procedures Communication with other providers Interpretation of test performed by others Communication of test results Established Patient: 92845 10 Minutes Plan Of Treatment No Information Insurance Providers Payer Name Payer Address Payer Phone Subscriber Number Group Number Insured Name Patient Relationship to Insured Coverage Start Date Coverage End Date [facility] [address] [place], [place] [phone] [id number] Lawrence Sonal Self - patient is the [...]
--- NOTE | 2025-02-24 16:16 | A.OFFVIS_ITS ---
Intake Visit Reasons: 6 month follow up Intake Note: Patient is present for 6m follow up Urology Med: Estradiol, Mirbegron Antibiotic Allergy: Sulfa Antibiotics Blood Thinner: None I&C Technician Required: No Accompanied by: Self / Same As Patient Allergies Penicillins Allergy (Mild, Verified 02/24/25 21:56) Unknown Sulfa (Sulfonamide Antibiotics) Adverse Reaction (Verified 02/24/25 21:56) Hives Medication List - Last Reconciled 02/24/25 by MORALES Shaw- estradiol 1 patch transdermal 2XW meloxicam 15 mg PO DAILY mirabegron ER 25 mg PO DAILY montelukast 10 mg PO DAILY naltrexone 1 mg PO DAILY progesterone micronized 100 mg PO DAILY HPI Comments Details: Sonal is a 54-year-old female patient of Dr. Horta. She has a past medical history of chronic sinusitis, nephrolithiasis, and fibroid uterus. She presents to the office today for follow-up of her nephrolithiasis and lower urinary tract symptoms. Of note, patient was seen approximately 3 months ago at which time she was started on Myrbetriq for ongoing lower urinary tract symptoms she has been experiencing. She discusses a longstanding history of urinary urgency, urinary frequency, and nocturia. She reports despite limiting fluids 2-3 hours prior to bed she continues with episodes of nocturia up to 3 times per night. She reports previously she had trialed low-dose Cialis and found this helpful for 6 months however felt symptoms returned. She was only recently able to start Myrbetriq as there were issues with insurance coverage. She reports having been on Myrbetriq for approximately 3 weeks and is unsure as if symptoms have improved. She discusses her mom's longstanding history of overactive bladder and reports her mother is on Myrbetriq and Gemtesa. She also has a longstanding history of nephrolithiasis however discusses this was many years ago and does not feel she needs further workup or intervention at this time. We did discussed at length further treatment options to include bladder diary, retroperitoneal ultrasound, in office cystoscopy, and or in office urodynamics. Risks and benefits of these interventions were discussed. She discusses having trialed trospium, tadalafil, Flomax, oxybutynin, and VESIcare without any improvement in her urinary frequency and nocturia. She discusses her most bothersome urinary issue is nocturia. She denies any signs or symptoms of sleep apnea. All questions were answered. In office urinalysis results reviewed with the patient today. We did discussed bladder triggers and irritants. All questions were answered. She otherwise offers no other issues or concerns at this time. PREVIOUS OFFICE NOTE: Nephrolithiasis Reason presentation to emergency room with distal right ureteric pain Imaging - CT - There is mild left-sided hydronephrosis with a prominent ureter down to the level of a tiny punctate 1.2 mm calculus at the left UVJ. 4 tiny punctate calcifications are seen in the lower pole of left kidney with 2 tiny punctate calcification in the left, one in the upper pole and the other in the lower pole Bladder instability Waking 3 times at night Urinating 8-15 times a day Only drinks 32 oz Previously investigated with urodynamics and diagnosed as interstitial cystitis in her 20s but never underwent treatment [facility] Medical History (Updated 02/24/25 @ 22:08 by Ileana Alfaro [facility]) Nocturia Sinusitis, chronic History of kidney stones Fibroid uterus Surgical History History of arthroscopy of left shoulder H/O elbow surgery Family History Maternal Aunt Breast cancer Father CAD (coronary atherosclerotic disease) Review of Systems Const All systems reviewed & are unremarkable except as noted in HPI and below Physical Exam Const General: cooperative, healthy appearing, comfortable, no acute distress, well developed, alert and awake Orientation/consciousness: patient oriented x3 Limitations: no limitations HEENT Head: Yes normal to inspection, Yes normocephalic and Yes atraumatic Ears: hearing grossly normal bilaterally Eyes General: appearance normal, both eyes and all related structures Neck Neck: Yes normal visual inspection and Yes trachea midline Chest Chest palpation & inspection: normal inspection of the chest Resp Effort & Inspection: normal respiratory effort and able to speak in complete sentences Cardio Rate: regular rate GI Inspection: Yes normal to inspection General: Yes no CVA tenderness Back/Spine/Pelvis Back: no CVA tenderness Skin General skin exam: no rashes or lesions noted Neuro General: patient oriented x3 Extrem General: Yes normal to inspection Psych Appearance: grossly normal and well kempt Mental Status: mental status grossly normal Speech and movement: Normal speech and movement present and Clear speech present Affect: normal affect Attitude: cooperative Thought process: Normal thought process present Thought content: Normal thought content present Insight: Fair insight present (Psych) Judgement: Fair judgement present (Psych) Results AMB Urinalysis, Automated UA Leukoctes 0 Sendy/uL Last Edit by Tamika To on 02/24/25 16:20 UA Nitrite Negative Last Edit by Crystal To on 02/24/25 16:20 UA Urobilinogen 17 mg/dL Last Edit by Crystal To on 02/24/25 16:20 UA Protein 1 mg/dL Last Edit by Crystal To on 02/24/25 16:20 UA pH 6.5 Last Edit by Crystal To on 02/24/25 16:20 UA Blood 10 Jayjay/uL Last Edit by Tamika To on 02/24/25 16:20 UA Specific [place] 1.015 Last Edit by Tamika To on 02/24/25 16:20 UA Ketone Negative Last Edit by Tamika To on 02/24/25 16:20 UA Bilirubin 0 mg/dL Last Edit by Tamika To on 02/24/25 16:20 UA Glucose 0 mg/dL Last Edit by Tamika To on 02/24/25 16:20 Results Reviewed Results Reviewed: Laboratory Last Values Urine pH (Auto) 6.5 02/24/25 16:05 Specific [place] (Auto) 1.015 02/24/25 16:05 Urine Protein (Auto) 1 mg/dL 02/24/25 16:05 Glucose (UA)(Auto) 0 mg/dL 02/24/25 16:05 Urine Ketones (Auto) Negative 02/24/25 16:05 Urine Blood (Auto) 10 Jayjay/uL 02/24/25 16:05 Urine Nitrite (Auto) Negative 02/24/25 16:05 Urine Bilirubin (Auto) 0 mg/dL 02/24/25 16:05 Urine Urobilinogen (Auto) 17 mg/dL 02/24/25 16:05 Leukocyte Esterase (Auto) 0 Sendy/uL 02/24/25 16:05 Assessment & Plan Assessment & Plan (1) Nephrolithiasis: Code(s): N20.0 - Calculus of kidney Category: Medical (2) Bladder instability: Code(s): N32.89 - Other specified disorders of bladder Category: Medical (3) Microscopic hematuria: Code(s): R31.29 - Other microscopic hematuria Category: Medical (4) Nocturia: Code(s): R35.1 - Nocturia Category: Medical Plan In office urinalysis results reviewed with the patient today; will send for urine cytology. We did discussed at length potential causes of lower urinary tract symptoms patient is experiencing as well as further treatment options and risks and benefits of these treatment options. Continue Myrbetriq; she will call office in 3-4 weeks to discuss potential increase in Myrbetriq as she is unsure if Myrbetriq has not helpful as she only started medication approximately 3 weeks ago. We discussed increase in Myrbetriq and or dual therapy with VESIcare or trial of Gemtesa. We also discussed bladder triggers and irritants. Information provided regarding bladder diary and bladder matters material for further Education. We discussed obtaining retroperitoneal ultrasound for further assessment evaluation; however she declines at this time. Will continue with Myrbetriq 25 mg daily at this time. Follow-up in 3 months with [facility]; or sooner with any issues, concerns, and or questions. Orders: Orders AMB Urinalysis Automated Today Z13.9 - Encounter for screening, unspecified Urine Cytology Today R35.1 - Nocturia Patient Instructions: The patient had an opportunity to ask questions regarding the treatment plan. All questions were answered. Physical exam, labs, and imaging were discussed and reviewed in detail. As well as risks, benefits, and discussion of treatment choices. No major barriers to understanding were identified. The patient expressed understanding and agreement with the above treatment plan. The patient was made aware they should contact our office by phone for worsening of their current condition, the appearance of new symptoms, or with any que stions or concerns. Compliance is encouraged with any medications and follow up testing that is ordered. It is a privilege to be allowed the opportunity to participate in? your urological care.? Again, if you have any questions or concerns If you have any questions or concerns please do not hesitate to contact me. The office is [phone]. This note is constructed using voice recognition software. While every effort has been made to ensure accuracy datastage developer errors may have been included. Yours sincerely, SARAH Shaw Coding Level of Care Code Est Pt Level 3 (14439) Complex EM visit Add On G2211 Diagnoses Nephrolithiasis N20.0 Bladder instability N32.89 Microscopic hematuria R31.29 Nocturia R35.1
== END 2025-02-24 16:55 | disposition home or self-care (01) ==
LOC: HO.HUSH 15:58
PROVIDERS: PCP Registered Nurse; Visit Provider Nurse Practitioner Family
DX: N20.0 Calculus of kidney (principal); N32.89 Other specified disorders of bladder; R31.29 Other microscopic hematuria; R35.1 Nocturia; Z13.9 Encounter for screening, unspecified
CPT/HCPCS: 99213; G2211

== ENCOUNTER 2025-02-24 15:58 | Outpatient (REF) | payer OTHER, SELFPAY | END 2025-02-24 15:59 | disposition home or self-care (01) | LOC: HO.LAB 15:58 | PROVIDERS: PCP Registered Nurse; Visit Provider Nurse Practitioner Family | DX: Z13.9 Encounter for screening, unspecified (principal); N20.0 Calculus of kidney; N32.89 Other specified disorders of bladder; R31.29 Other microscopic hematuria; R35.1 Nocturia | CPT/HCPCS: 81003; 88112 ==

== ENCOUNTER 2025-05-26 07:42 | Outpatient (REF) | payer OTHER, SELFPAY | END 2025-05-26 07:43 | disposition home or self-care (01) | LOC: HO.LAB 07:42 | PROVIDERS: PCP Registered Nurse; Visit Provider Nurse Practitioner Family | DX: R31.29 Other microscopic hematuria (principal); N20.0 Calculus of kidney; N32.89 Other specified disorders of bladder; R35.1 Nocturia | CPT/HCPCS: 51798; 81003; 88112 ==

== ENCOUNTER 2025-05-26 07:42 | Outpatient (AMB) | payer OTHER, SELFPAY ==
--- OUTSIDE RECORDS SUMMARY | 2025-05-26 07:48 | XMS_ITS | Clinical Summary ---
Author Organization [facility] Address [address] [place] [address] Care Team Providers Care Investment Manager Name Role Phone Alexei Velazquez MD Primary Care Provider [phone] Allergies Active Allergy Reactions Criticality Noted Date [...] Group Subscriber ID Effective Dates Phone Address [facility] [id number] 2019-Presen t [address] [facility] [address] [place] [phone] O Care Teams Investment Manager Relationship Specialty Start Date End Date Alexei Velazquez MD PCP - General Regional Director Of Admissions 10/16/19
--- OUTSIDE RECORDS SUMMARY | 2025-05-26 07:48 | XMS_ITS ---
Author Name [facility] Organization Unknown Care Team Organization Name Specialty Phone Email Start Date End Da sanford [facility] 06/27/2022 4
--- OUTSIDE RECORDS SUMMARY | 2025-05-26 07:48 | XMS_ITS | Patient Health Record ---
Author Organization [facility] Address [address] [id number] Care Team Providers Care Community Development Specialist Name Role Phone KAMERON NAVARRETE Unavailable [phone] Allergies Allergen (clinical drug ingredient) Drug/Non Drug Allergy documented on EMR Reaction Allergy Type Onset Date Status Penicillin Unknown Drug Allergy Active Substance with sulfonamide structure and antibacterial mechanism of action (substance) Sulfa Antibiotics Unknown Drug Allergy Active Reason For Referral No Information Medications Medication SIG (Take, Route, Frequency, Duration) Notes Start Date End Date Status Iron Not-Taking /PRN LORazepam at night for sleep Not-Taking/PRN Meloxicam 15 MG Tablet 1 tablet Orally Once a day; Duration: 30 day(s) Active Estradiol patch Active Progesterone Micronized at night 100mg Active Social History Sex Assigned At : Social History Observation Description Sex Assigned At Female Social History HIV Risk Assessment Social Info Question Answer Notes Additional Questions Is an HIV Risk Asse ssment being conducted? No Reproductive Life Plan: Social Info Question Answer Notes Reproductive Life Plan: Do you want to have chil dren? No, I don't want to have children How sure are you that you will be able to use your control method without any problems? Very sure People's plans change. Is it possible you or your partner could ever decide to become ? No Human Trafficking: Social Info Question Answer Notes Human Trafficking Experienced: No PrEP for HIV: Social Info Question Answer Notes PrEP for HIV Is the client brandon carson in beginning/continuing PrEP for HIV? No Sexual History: Social Info Question Answer Notes Sexual History: Sexual History Reviewed: Partner s, Practices, Protection/Past STIs, Prevention of Currently sexually active? No When was the last time you were sexually active? very long ago Your sexual activities include: no sexual activity Reviewed types of EC? No Do you use condoms? No Number of partners in past 3 months: 0 Number of partners in past year: 0 What is the client's primary method to prevent at the end of their visit? Abstinence Counseling Provided: Social Info Question Answer Notes Counseling Provided Please indicate the length of time, in minutes, that counseling was provided. 6 Counseling Was Provided By: curtis Drugs/Alcohol: Social Info Question Answer Notes Drug/Alcohol Use Do you or have you used drugs? 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 Yes, in the past Tobacco Smoking Status Former smoker Problems Problem Type SNOMED Code ICD Code Onset Dates Problem Status W/U Status Risk Notes Problem Atrophy of vulva (423560747) Atrophy of vulva (N90.5) Active confirmed Problem Postmenopausal bleeding (78265322) Postmenopausal bleeding (N95.0) Active confirmed Vital Signs Blood pressure diastolic 82 mm Hg 11/03/2024 Height 5'4 in 11/03/2024 Blood pressure systolic 122 mm Hg 11/03/2024 Weight 138.6 lbs 11/03/2024 BMI 23.79 kg/m2 11/03/2024 Encounters Encounter Location Date Provider Diagnosis [facility] [id number] 11/03/2024 KAMERON GABAI Counseling, unspecified Z71.[address] [facility] [id number] 11/04/2024 KAMERON GABAI Assessments Encounter Date Diagnosis (ICD Code) Assessment Notes Treatment Notes Treatment Clinical Notes Section Notes 11/03/2024 Counseling, unspecified (ICD-10 - Z71.9) Reviewed notes from outside provider. Clt has appt tomorrow with AUDIO VISUAL ENGINEER again to review plan of care and discuss concerns regarding recommendation to repeat D&C. Encouraged clt to advocate for plan to manage vasomotor symptoms with non-hormonal medication if they still advise discontinuation of HRT patch. Encouraged clt not to cut patch in half or quarters d/t potential for inaccurate dosing. Consider hormonal IUD at time of D&Ladle Filler she could consider staying on estrogen patch for relief of hot flashes and have endometrial protection. Hysterectomy is also still an option, but clt doesn't seem interested in that at this time. Support provided. Encouraged clt to discuss concerns with AUDIO VISUAL ENGINEER and be up front with what she feels comfortable doing. If AUDIO VISUAL ENGINEER is advising repeat D&C then that is [...] others Communication of test results Established Patient: [id number] 30 Minutes Plan Of Treatment No Information Insurance Providers Payer Name Payer Address Payer Phone Subscriber Number Group Number Insured Name Patient Relationship to Insured Coverage Start Date Coverage End Date [facility] [address] [place], [place] [id number] Sonal Bravo Self - patient is the insured Medical [...]
--- NOTE | 2025-05-26 07:49 | A.OFFVIS_ITS ---
Intake Visit Reasons: 3m follow up Intake Note: Patient is present for 3m follow up PVR:140 mls Urology Med: Estradiol, Mirbegron Antibiotic Allergy: Sulfa Antibiotics Blood Thinner: None District Branch Manager Required: No Accompanied by: Self / Same As Patient Allergies Penicillins Allergy (Mild, Verified 05/26/25 08:31) Unknown Sulfa (Sulfonamide Antibiotics) Adverse Reaction (Verified 05/26/25 08:31) Hives Medication List - Last Reconciled 05/26/25 by MORALES Shaw- estradiol 1 patch transdermal 2XW meloxicam 15 mg PO DAILY mirabegron ER 25 mg PO DAILY montelukast 10 mg PO DAILY naltrexone 1 mg PO DAILY progesterone micronized 100 mg PO DAILY HPI Comments Details: Sonal is a 54-year-old female patient of Dr. Horta. She has a past medical history of chronic sinusitis, nephrolithiasis, and fibroid uterus. She presents to the office today for follow-up of her nephrolithiasis and lower urinary tract symptoms. In discussion with the patient today she reports she has had improvement in overactive bladder symptoms however does continue to feel she is bothered by her lower urinary tract symptoms. She continues to experience urinary frequency and urinary urgency. During last office visit recommendations were made for bladder diary however this was not performed as patient finds it difficult to complete this. She discusses a longstanding history of urinary urgency, urinary frequency, and nocturia. She reports despite limiting fluids 2-3 hours prior to bed she continues with episodes of nocturia up to 3 times per night. She reports previously she had trialed low-dose Cialis and found this helpful for 6 months however felt symptoms returned. She discusses her mom's longstanding history of overactive bladder and reports her mother is on Myrbetriq and Gemtesa. She also has a longstanding history of nephrolithiasis however discusses this was many years ago and does not feel she needs further workup or intervention at this time. We did discussed at length further treatment options to include bladder diary, retroperitoneal ultrasound, in office cystoscopy, and or in office urodynamics. Risks and benefits of these interventions were discussed. She has previously trialed trospium, tadalafil, Flomax, oxybutynin, and VESIcare without any improvement in her urinary frequency and nocturia. She discusses her most bothersome urinary issue is nocturia. She denies any signs or symptoms of sleep apnea. All questions were answered. In office urinalysis results reviewed with the patient today. We did discussed bladder triggers and irritants. All questions were answered. She otherwise offers no other issues or concerns at this time. Urine Cytology: 03/13 Negative for high-grade urothelial carcinoma. PREVIOUS OFFICE NOTE: Nephrolithiasis Reason presentation to emergency room with distal right ureteric pain Imaging - CT - There is mild left-sided hydronephrosis with a prominent ureter down to the level of a tiny punctate 1.2 mm calculus at the left UVJ. 4 tiny punctate calcifications are seen in the lower pole of left kidney with 2 tiny punctate calcification in the left, one in the upper pole and the other in the lower pole Bladder instability Waking 3 times at night Urinating 8-15 times a day Only drinks 32 oz Previously investigated with urodynamics and diagnosed as interstitial cystitis in her 20s but never underwent treatment [facility] Medical History Nocturia Sinusitis, chronic History of kidney stones Fibroid uterus Surgical History History of arthroscopy of left shoulder H/O elbow surgery Family History Maternal Aunt Breast cancer Father CAD (coronary atherosclerotic disease) Review of Systems Const All systems reviewed & are unremarkable except as noted in HPI and below Physical Exam Const General: cooperative, healthy appearing, comfortable, no acute distress, well developed, alert and awake Orientation/consciousness: patient oriented x3 Limitations: no limitations HEENT Head: Yes normal to inspection, Yes normocephalic and Yes atraumatic Ears: hearing grossly normal bilaterally Eyes General: appearance normal, both eyes and all related structures Neck Neck: Yes normal visual inspection and Yes trachea midline Chest Chest palpation & inspection: normal inspection of the chest Resp Effort & Inspection: normal respiratory effort and able to speak in complete sentences Cardio Rate: regular rate GI Inspection: Yes normal to inspection General: Yes no CVA tenderness Back/Spine/Pelvis Back: no CVA tenderness Skin General skin exam: no rashes or lesions noted Neuro General: patient oriented x3 Extrem General: Yes normal to inspection Psych Appearance: grossly normal and well kempt Mental Status: mental status grossly normal Speech and movement: Normal speech and movement present and Clear speech present Affect: normal affect Attitude: cooperative Thought process: Normal thought process present Thought content: Normal thought content present Insight: Fair insight present (Psych) Judgement: Fair judgement present (Psych) Office Procedures Post Void Residual Post Residual Void Post Void Residual (PVR): 140 [id number] Void Residual by ultrasound Results AMB Urinalysis, Automated UA Leukoctes 0 Sendy/uL Last Edit by JUANY Garcia on 05/26/25 08:03 UA Nitrite Negative Last Edit by JUANY Garcia on 05/26/25 08:03 UA Urobilinogen 0.2 mg/dL Last Edit by JUANY Garcia on 05/26/25 08:0 3 UA Protein 30 mg/dL Last Edit by JUANY Garcia on 05/26/25 08:03 UA pH 6.0 Last Edit by JUANY Garcia on 05/26/25 08:03 UA Blood 10 Jayjay/uL Last Edit by JUANY Garcia on 05/26/25 08:03 UA Specific Dennard 1.020 Last Edit by JUANY Garcia on 05/26/25 08: 03 UA Ketone Negative Last Edit by JUANY Garcia on 05/26/25 08:03 UA Bilirubin 0 mg/dL Last Edit by JUANY Garcia on 05/26/25 08:03 UA Glucose 0 mg/dL Last Edit by JUANY Garcia on 05/26/25 08:03 Results Reviewed Results Reviewed: Laboratory Last Values Urine pH (Auto) 6.0 05/26/25 08:03 Specific Dennard (Auto) 1.020 05/26/25 08:03 Urine Protein (Auto) 30 mg/dL 05/26/25 08:03 Glucose (UA)(Auto) 0 mg/dL 05/26/25 08:03 Urine Ketones (Auto) Negative 05/26/25 08:03 Urine Blood (Auto) 10 Jayjay/uL 05/26/25 08:03 Urine Nitrite (Auto) Negative 05/26/25 08:03 Urine Bilirubin (Auto) 0 mg/dL 05/26/25 08:03 Urine Urobilinogen (Auto) 0.2 mg/dL 05/26/25 08:03 Leukocyte Esterase (Auto) 0 Sendy/uL 05/26/25 08:03 Assessment & Plan Assessment & Plan (1) Nephrolithiasis: Code(s): N20.0 - Calculus of kidney Category: Medical (2) Bladder instability: Code(s): N32.89 - Other specified disorders of bladder Category: Medical (3) Microscopic hematuria: Code(s): R31.29 - Other microscopic hematuria Category: Medical (4) Nocturia: Code(s): R35.1 - Nocturia Category: Medical Plan In office urinalysis results reviewed with the patient today; will send for urine cytology. We did discussed at length potential causes of lower urinary tract symptoms patient is experiencing as well as further treatment options and risks and benefits of these treatment options. Continue Myrbetriq; however we did discussed stopping medication 7-10 days prior to urodynamics study. We also discussed bladder triggers and irritants. We did discussed importance of obtaining bladder diary for further assessment evaluation We discussed obtaining retroperitoneal ultrasound for further assessment evaluation; however she declines at this time. Follow-up next available in office urodynamics Follow-up per doctor's orders; or sooner with any issues, concerns, and or questions. Orders: Orders AMB Urinalysis Automated Today Z13.9 - Encounter for screening, unspecified Urine Cytology Today R31.29 - Other microscopic hematuria Patient Instructions: The patient had an opportunity to ask questions regarding the treatment plan. All questions were answered. Physical exam, labs, and imaging were discussed and reviewed in detail. As well as risks, benefits, and discussion of treatment choices. No major barriers to understanding were identified. The patient expres sed understanding and agreement with the above treatment plan. The patient was made aware they should contact our office by phone for worsening of their current condition, the appearance of new symptoms, or with any questions or concerns. Compliance is encouraged with any medications and follow up testing that is ordered. It is a privilege to be allowed the opportunity to participate in? your urological care.? Again, if you have any questions or concerns If you have any questions or concerns please do not hesitate to contact me. The office is [phone]. This note is constructed using voice recognition software. While every effort has been made to ensure accuracy volunteer services coordinator errors may have been included. Yours sincerely, MORALES Shaw-BC Coding Level of Care Code Est Pt Level 3 (85803) Complex EM visit Add On G2211 Diagnoses Nephrolithiasis N20.0 Bladder instability N32.89 Microscopic hematuria R31.29 Nocturia R35.1 CPT Codes Post Residual Void - PVR CPT Code: 64384-Cudf Void Residual by ultrasound ([id number])
== END 2025-05-26 08:36 | disposition home or self-care (01) ==
LOC: HO.HUSH 07:43
PROVIDERS: PCP Registered Nurse; Visit Provider Nurse Practitioner Family
DX: N20.0 Calculus of kidney (principal); N32.89 Other specified disorders of bladder; R31.29 Other microscopic hematuria; R35.1 Nocturia; Z13.9 Encounter for screening, unspecified
CPT/HCPCS: 99213; G2211